=== PATIENT | female | born 1960 | race Caucasian/White ===

== ENCOUNTER 2016-07-22 14:38 | Emergency (ER) | payer OTHER ==
[~2016-07-22] VITALS: Ht 160 cm; Wt 59.0 kg
[2016-07-22] MEDS ORDERED: MORPHINE SULFATE 4 MG/1 ML DISP.SYRIN IV ONE (15:00)
[2016-07-22] MEDS ORDERED: ONDANSETRON 4 MG/2 ML VIAL IV ONE (15:00)
[2016-07-22] MEDS ORDERED: ONDANSETRON 4 MG/2 ML VIAL ONE (15:06)
[2016-07-22] MEDS ORDERED: MORPHINE SULFATE 4 MG/1 ML DISP.SYRIN ONE (15:06)
--- NOTE | 2016-07-22 16:34 | NUR ---
Patient discharged to home in stable conditon. Written and verbal after care instructions given. Patient verbalizes understanding of instructions. Stressed follow up with pmd/ortho or return to ER for worsening s/s.
== END 2016-07-22 16:36 | disposition home or self-care (01) ==
LOC: ER 14:38
DX: S42.292A Other displaced fracture of upper end of left humerus, initial encounter for closed fracture (principal); V19.9XXA Pedal cyclist (driver) (passenger) injured in unspecified traffic accident, initial encounter; Y93.89 Activity, other specified; Y99.8 Other external cause status; Y92.89 Other specified places as the place of occurrence of the external cause; S80.212A Abrasion, left knee, initial encounter; M25.552 Pain in left hip
CPT/HCPCS: 73030; 73502; A4663; J2270; J2405